=== PATIENT | female | born 2000 | race Caucasian/White ===

== ENCOUNTER 2019-11-25 14:40 | Emergency (ER) | payer MEDICAID ==
[~2019-11-25] VITALS: Ht 165.1 cm; Wt 62.1 kg
[2019-11-25 14:48] VITALS: BP 135/92; Ht 165.1 cm; Wt 62.1 kg
== END 2019-11-25 16:40 | disposition home or self-care (01) ==
LOC: ED 14:40
DX: S82.892A Other fracture of left lower leg, initial encounter for closed fracture (principal); X50.1XXA Overexertion from prolonged static or awkward postures, initial encounter; Y93.89 Activity, other specified; Y92.89 Other specified places as the place of occurrence of the external cause; Y99.8 Other external cause status